=== PATIENT | female | born 1985 | race African-American/Black ===

== ENCOUNTER 2017-08-29 19:07 | Emergency (ER) | payer OTHER, SELFPAY ==
[~2017-08-29] VITALS: Ht 160 cm; Wt 92.5 kg
[2017-08-29 19:20] VITALS: BP 141/88
[2017-08-29] MEDS ORDERED: LIDOCAINE 1%, 10ML ONE (20:55)
[2017-08-29] MEDS ORDERED: LIDOCAINE 1%, 20ML SQ ONE (21:00)
== END 2017-08-29 21:32 ==
LOC: ED 21:05
DX: L02.414 Cutaneous abscess of left upper limb (principal)
CPT/HCPCS: 10060; 99283; J3490

== ENCOUNTER 2017-09-01 18:27 | Emergency (ER) | payer SELFPAY ==
[~2017-09-01] VITALS: Ht 157.5 cm; Wt 92.1 kg
[2017-09-01 18:33] VITALS: BP 158/102
[2017-09-01] MEDS ORDERED: SULFAMETH./TRIMETHOPRIM DS 800MG/160MG TABLET ONE (20:06)
[2017-09-01] MEDS ORDERED: CEPHALEXIN 500 MG CAPSULE ONE (20:06)
[2017-09-01] MEDS ORDERED: CEPHALEXIN 500 MG CAPSULE PO ONE (20:30)
[2017-09-01] MEDS ORDERED: SULFAMETH./TRIMETHOPRIM DS 800MG/160MG TABLET PO ONE (20:30)
== END 2017-09-01 20:19 | disposition home or self-care (01) ==
LOC: ED 20:05
DX: Z48.01 Encounter for change or removal of surgical wound dressing (principal)
CPT/HCPCS: 99283

== ENCOUNTER 2021-02-22 00:40 | Inpatient (IN) | payer OTHER ==
[~2021-02-22] VITALS: Ht 157.5 cm; Wt 112.7 kg
[2021-02-22] MEDS ORDERED: METOCLOPRAMIDE 5 MG/ML, 2ML IV ONE (07:30)
[2021-02-22] MEDS ORDERED: SODIUM CITRATE/CITRIC ACID 30 ML UDC PO ONE (07:30)
[2021-02-22] MEDS ORDERED: LACTATED RINGERS 1,000 ML IVBOLUS ONE (07:30)
[2021-02-22 07:50] VITALS: BP 136/76
[2021-02-22 08:04] LABS: BASOPHILS % (AUTO) 0 % (0-1); EOSINOPHILS % (AUTO) 1 % (1-7); LYMPHOCYTES % (AUTO) 19 % (22-44); MEAN CORPUSCULAR HEMOGLOBIN 30.4 pg (27.0-34.8); MEAN CORPUSCULAR HGB CONC 33.4 g/dL (32.4-35.8); MEAN PLATELET VOLUME 8.6 fL (7.4-10.4); MONOCYTES % (AUTO) 8 % (2-9); NEUTROPHILS % (AUTO) 72 % (42-75); PLATELET COUNT 266 x10^3/uL (130-400); RED BLOOD COUNT 4.22 x10^6/uL (3.82-5.3); RED CELL DISTRIBUTION WIDTH 16.3 % (9.6-15.2)
[2021-02-22] MEDS ORDERED: NEWBORN KIT ONE (08:55)
[2021-02-22] MEDS ORDERED: SODIUM CITRATE/CITRIC ACID 15 ML UDC ONE (08:55)
[2021-02-22] MEDS ORDERED: OXYTOCIN 30U/ 0.9% NaCL 500ML 500 ML ONE (08:55)
[2021-02-22 09:10] LABS: AMPHETAMINE SCREEN, URINE Negative (Negative); BARBITURATE SCREEN, URINE Negative (Negative); BENZODIAZEPINE SCREEN, URINE Negative (Negative); CANNABINOID SCREEN, URINE Negative (Negative); COCAINE SCREEN, URINE Negative (Negative); METHADONE SCREEN, URINE Negative (Negative); OPIATE SCREEN, URINE Negative (Negative)
[2021-02-22] MEDS ORDERED: FENTANYL PF 100 MCG/2ML IV PRN (09:30)
[2021-02-22] MEDS ORDERED: ONDANSETRON 2MG/ML, 2ML IVPush PRN (09:30)
[2021-02-22] MEDS ORDERED: morphine SULFATE 10 MG/ML, 1ML IVPush PRN (09:30)
[2021-02-22] MEDS ORDERED: OXYcodone 5 MG/5 ML ORAL.SOL UDC PO PRN (09:30)
[2021-02-22] MEDS ORDERED: DIPHENHYDRAMINE 50 MG/ML, 1ML IVPush PRN (09:30)
[2021-02-22] MEDS ORDERED: MEPERIDINE/PF 25MG/0.5ML IVPush PRN (09:30)
[2021-02-22] MEDS ORDERED: HYDROmorphone 1 MG/ML, 1ML INJ IVPush PRN (09:30)
[2021-02-22] MEDS ORDERED: ACETAMINOPHEN 325 MG TABLET PO PRN (09:30)
[2021-02-22] MEDS ORDERED: EPHEDRINE 50 MG/ML, 1ML IVPush PRN (09:30)
[2021-02-22] MEDS ORDERED: LIDOCAINE/MPF 2%-EPI 1:200K, 20 ML ONE (10:07)
[2021-02-22] MEDS ORDERED: LIDOCAINE-MPF 2% ,5ML ONE (10:07)
[2021-02-22] MEDS ORDERED: ONDANSETRON 2MG/ML, 2ML IV PRN (12:00)
[2021-02-22] MEDS: OXYTOCIN 30U/ 0.9% NaCL 500ML 500 ML IV SCH ×2 (12:00→22:00)
[2021-02-22] MEDS ORDERED: MORPHINE SULFATE 4 MG/ML, 1ML IVPush PRN (12:00)
[2021-02-22] MEDS ORDERED: CARBOPROST TROMETHAMINE 250 MCG/ML, 1ML IM PRN (12:00)
[2021-02-22] MEDS: LACTATED RINGERS 1,000 ML IV SCH ×4 (12:00→22:00)
[2021-02-22] MEDS ORDERED: MISOPROSTOL 200 MCG TABLET PR PRN (12:00)
[2021-02-22] MEDS ORDERED: METHYLERGONOVINE 0.2 MG/ML IM PRN (12:00)
[2021-02-22] MEDS ORDERED: KETOROLAC 30 MG/1 ML IM SCH (12:00)
[2021-02-22] MEDS ORDERED: SIMETHICONE 80 MG CHEW TAB PO PRN (12:00)
[2021-02-22] MEDS ORDERED: OXYcodone 5 MG/5 ML ORAL.SOL UDC ONE (12:07)
[2021-02-22] MEDS ORDERED: FENTANYL PF 100 MCG/2ML ONE (12:07)
[2021-02-22] MEDS: FENTANYL PF 100 MCG/2ML IV PRN ×2 (12:10→12:20)
[2021-02-22] MEDS: OXYcodone 5 MG/5 ML ORAL.SOL UDC PO PRN ×2 (12:15→15:55)
[2021-02-22 13:00] VITALS: BP 140/84
[2021-02-22 15:44] VITALS: BP 124/75
[2021-02-22] MEDS: KETOROLAC 30 MG/1 ML IV SCH (17:15)
[2021-02-22 18:28] VITALS: BP 130/86
[2021-02-22 18:36] LABS: BASOPHILS % (AUTO) 0 % (0-1); EOSINOPHILS % (AUTO) 1 % (1-7); LYMPHOCYTES % (AUTO) 13 % (22-44); MEAN CORPUSCULAR HEMOGLOBIN 30.1 pg (27.0-34.8); MEAN CORPUSCULAR HGB CONC 33.1 g/dL (32.4-35.8); MEAN PLATELET VOLUME 8.6 fL (7.4-10.4); MONOCYTES % (AUTO) 7 % (2-9); NEUTROPHILS % (AUTO) 79 % (42-75); PLATELET COUNT 253 x10^3/uL (130-400); RED BLOOD COUNT 3.92 x10^6/uL (3.82-5.3); RED CELL DISTRIBUTION WIDTH 16.4 % (9.6-15.2)
[2021-02-22] MEDS: DOCUSATE 100 MG CAPSULE PO PRN (20:05)
[2021-02-22] MEDS: OXYcodone/APAP 5/325MG TABLET PO PRN (20:06)
[2021-02-23] MEDS: KETOROLAC 30 MG/1 ML IV SCH ×5 (00:06→22:05)
[2021-02-23] MEDS: OXYcodone/APAP 5/325MG TABLET PO PRN ×3 (00:06→22:05)
[2021-02-23 00:35] VITALS: BP 110/73
[2021-02-23] MEDS: LACTATED RINGERS 1,000 ML IV SCH ×5 (04:00→20:00)
[2021-02-23 04:41] VITALS: BP 110/72
[2021-02-23] MEDS: OXYTOCIN 30U/ 0.9% NaCL 500ML 500 ML IV SCH ×2 (08:00→18:00)
[2021-02-23 08:20] VITALS: BP 113/74
[2021-02-23] MEDS: PRENATAL VIT/IRON/FA 1 EACH TABLET PO SCH (09:22)
[2021-02-23] MEDS: DOCUSATE 100 MG CAPSULE PO PRN ×3 (09:22→22:05)
[2021-02-23] MEDS ORDERED: DIPH,PERTUSS(ACELL),TET VAC/PF NC IM-VACC ONE ×2 (16:08→17:00)
[2021-02-23 22:00] VITALS: BP 123/81
[2021-02-24] MEDS: OXYTOCIN 30U/ 0.9% NaCL 500ML 500 ML IV SCH ×2 (04:00→14:00)
[2021-02-24] MEDS: LACTATED RINGERS 1,000 ML IV SCH ×5 (04:00→20:00)
[2021-02-24] MEDS: KETOROLAC 30 MG/1 ML IV SCH ×2 (05:40→11:19)
[2021-02-24] MEDS: OXYcodone/APAP 5/325MG TABLET PO PRN ×3 (05:46→20:23)
[2021-02-24 08:15] VITALS: BP 121/77
[2021-02-24] MEDS: PRENATAL VIT/IRON/FA 1 EACH TABLET PO SCH (08:52)
[2021-02-24] MEDS ORDERED: KETOROLAC 30 MG/1 ML ONE (11:12)
[2021-02-24] MEDS: IBUPROFEN 600 MG TABLET PO PRN (20:22)
[2021-02-24] MEDS: DOCUSATE 100 MG CAPSULE PO PRN (20:22)
[2021-02-24 21:30] VITALS: BP 135/84
[2021-02-25] MEDS: IBUPROFEN 600 MG TABLET PO PRN ×2 (03:34→14:02)
[2021-02-25] MEDS: LACTATED RINGERS 1,000 ML IV SCH ×4 (04:00→12:00)
[2021-02-25] MEDS: DOCUSATE 100 MG CAPSULE PO PRN (07:50)
[2021-02-25] MEDS: PRENATAL VIT/IRON/FA 1 EACH TABLET PO SCH (07:50)
[2021-02-25] MEDS: OXYcodone/APAP 5/325MG TABLET PO PRN ×2 (07:51→14:02)
[2021-02-25 08:28] VITALS: BP 127/85
[2021-02-25] MEDS: OXYTOCIN 30U/ 0.9% NaCL 500ML 500 ML IV SCH ×2 (10:00)
== END 2021-02-25 15:25 | disposition home or self-care (01) | DRG 787 ==
LOC: LDIP 07:16 → 2NW 13:00
PROVIDERS: ADMIT Obstetrics & Gynecology; ATTEND Obstetrics & Gynecology
PROC: 10D00Z1 Extraction of Products of Conception, Low, Open Approach (ICD-10-PCS; principal; 2021-02-22)
PROC: 3E0234Z Introduction of Serum, Toxoid and Vaccine into Muscle, Percutaneous Approach (ICD-10-PCS; 2021-02-23)
DX: O34.211 Maternal care for low transverse scar from previous cesarean delivery (principal); O99.324 Drug use complicating childbirth; F15.90 Other stimulant use, unspecified, uncomplicated; O69.81X0 Labor and delivery complicated by cord around neck, without compression, not applicable or unspecified; O99.214 Obesity complicating childbirth; Z20.822 Contact with and (suspected) exposure to COVID-19; Z37.0 Single live birth; Z3A.39 39 weeks gestation of pregnancy; Z80.1 Family history of malignant neoplasm of trachea, bronchus and lung; Z82.49 Family history of ischemic heart disease and other diseases of the circulatory system; Z23 Encounter for immunization
CPT/HCPCS: 36415; 80307; 85025; 86592; 86850; 86900; 87635; 90715; G0378; J1885; J3010; J2590; J2765; J7120